=== PATIENT | female | born 2000 | race Caucasian/White ===

== ENCOUNTER 2024-12-28 10:55 | Emergency (ER) | payer MEDICAID ==
[~2024-12-28] VITALS: Ht 154.9 cm; Wt 72.6 kg
[2024-12-28 13:12] VITALS: BP 137/84; TEMP 98.5; O2SAT 100
== END 2024-12-28 13:13 | disposition home or self-care (01) ==
LOC: ER 11:05
DX: T74.21XA Adult sexual abuse, confirmed, initial encounter (principal); Y92.89 Other specified places as the place of occurrence of the external cause